=== PATIENT | female | born 1985 | race Caucasian/White ===

== ENCOUNTER 2021-04-07 09:05 | Emergency (ER) | payer OTHER ==
[~2021-04-07 09:05] MED LIST: BACTRIM DS TAB1 EACH PO; BENTYL10 MG PO; DEPO-PROVE150 MG/11 IM; IBUPROFEN800 MG PO; MEDROL 4MG DOSEP4 MG PO; NAPROXEN500 MG PO; NORCO 5-325 TA1 EACH PO; ONDANSETRON ODT4 MG SL; PAXIL CR25 M1 PO; PERCOCET 5-3251 EACH PO
[2021-04-07 09:31] LABS: BASOPHIL 0.9 % (0-2); EOSINOPHIL 2.1 % (0-5); HCT 39.2 % (37.0-47.0); HGB 13.8 g/dl (12.5-16.0); MCH 32.2 pg (25.0-31.0); MCHC 35.2 g/dL (32.0-36.0); MCV 91.4 fL (78.0-100.0); MONOCYTE 7.6 % (0-12); MPV 11.1 fL (6.0-9.5); NEUTROPHIL 53.2 % (41-80); NRBC 0; PLT 222 K/uL (150-400); RBC 4.29 M/uL (4.20-5.40); RDW 12.5 % (11.5-14.0); WBC 5.7 K/uL (4.0-10.5)
[2021-04-07 10:00] LABS: BUN/CREAT RATIO (CALC) 12.7 RATIO; CREATININE 0.71 mg/dL (0.51-0.95); POTASSIUM 3.7 mmol/L (3.5-5.1)
[2021-04-07] MEDS ORDERED: NAPROXEN500 MG PO (10:15)
== END 2021-04-07 10:32 | disposition home or self-care (01) ==
LOC: FER 09:05
PROVIDERS: Emergency Medicine
DX: M94.0 Chondrocostal junction syndrome [Tietze] (principal); R94.31 Abnormal electrocardiogram [ECG] [EKG]; Z82.49 Family history of ischemic heart disease and other diseases of the circulatory system
CPT/HCPCS: 36415; 71046; 80048; 84484; 85025; 93005